=== PATIENT | female | born 1980 | race Hispanic/Latino ===

== ENCOUNTER 2021-10-21 23:03 | Inpatient (IN) | payer MEDICARE ==
[2021-10-21] MEDS ORDERED: SODIUM CHLORIDE 0.9% 1000 ML 1,000 ML IV ONE (23:28)
[2021-10-21] MEDS ORDERED: MINERAL OIL/PETROLATUM, WHITE OPHTH OINT 3.5 GM OU PRN (23:28)
[2021-10-21] MEDS ORDERED: LIP THERAPY VASELINE TP PRN (23:28)
[2021-10-21] MEDS ORDERED: ETOMIDATE 20 MG/10 ML INJ IV ONE (23:31)
[2021-10-21] MEDS ORDERED: ROCURONIUM 50 MG/5 ML INJ IV ONE (23:31)
--- NOTE | 2021-10-21 23:44 | Emergency Department Report ---
ED General Adult HPI - General Chief complaint: Altered Mental Status Stated complaint: OVERDOSE Time Seen by Provider: 10/21/21 23:28 Source: EMS (Verbal report received from emergency medical services. EMS documentation not available at time of chart dictation ), RN notes reviewed Mode of arrival: Stretcher Limitations: Altered Mental Status, Physical Limitation - History of Present Illness Initial comments: The patient is a 41-year-old female who was brought to the hospital by emergency medical services who is currently receiving trv-gxfky-ydsz ventilation. History is entirely obtained from EMS. EMS reports that they were called to the scene of a 41-year-old female with a complaint of altered mental status as per family/bystanders. EMS reports that it is suspected that this patient may have recreationally overdose on GHB and/or other recreational drugs. EMS reports patient minimally responsive in the field, they attempted intubation, but were unsuccessful. EMS also reports normal blood pressure and heart rate, and normal Accu-Chek. EMS reports giving 4 mg of Narcan in the field with minimal improvement in symptoms. They did report that the patient slightly aroused after receiving Narcan, and moves 4 extremities. Patient is currently obtunded with a GCS of 3 receiving fnt-thbse-gpht ventilation. She has copious secretions in her oropharynx. The patient is acutely altered, and not able to describe the qualitative nature of her symptoms, exacerbating factors relieving factors or aggravating factors. She is not accompanied by friends or family at this moment for additional information/collateral history. No additional history is available at this time -: unknown - Related Data Allergies Allergy/AdvReac Type Severity Reaction Status Date / Time Unable to Assess Allergy Verified 10/21/21 23:52 ED Review of Systems ROS: Stated complaint: OVERDOSE Other details as noted in HPI Comment: Unobtainable due to pts medical conditions ED Physical Exam - General Limitations: Altered Mental Status, Physical Limitation General appearance: obtunded - Head Head exam: Present: atraumatic, normocephalic - Eye Eye exam: Present: other (Pupils are dilated and react to light) - ENT ENT exam: Present: normal exam, normal orophraynx, mucous membranes moist, normal external ear exam, other (Copious secretions noted in the oropharynx) - Neck Neck exam: Present: normal inspection. Absent: tenderness, meningismus - Respiratory Respiratory exam: Present: respiratory distress, rhonchi - Cardiovascular Cardiovascular Exam: Present: regular rate, normal rhythm, normal heart sounds. Absent: bradycardia, tachycardia, irregular rhythm, systolic murmur, diastolic murmur, rubs, gallop - GI/Abdominal GI/Abdominal exam: Present: soft. Absent: distended, tenderness, guarding, rebound, rigid, pulsatile mass - Rectal Rectal exam: Present: normal inspection - External exam: Present: normal external exam - Extremities Exam Extremities exam: Present: normal inspection, other (2+ pulses noted in the bilateral upper and lower extremities. There is no palpable cord. negative Homans sign. Muscular compartments are soft. The pelvis is stable.). Absent: pedal edema, calf tenderness - Back Exam Back exam: Present: normal inspection. Absent: tenderness, CVA tenderness (L), paraspinal tenderness, vertebral tenderness - Neurological Exam Neurological exam: Present: altered (GCS of 3) - Psychiatric Psychiatric exam: Present: other (The patient is nonverbal) - Skin Skin exam: Present: warm, dry, intact, normal color. Absent: rash ED Course Vital Signs 10/21/21 10/22/21 10/22/21 23:40 00:00 00:45 Temperature 96.7 F L Pulse Rate 87 86 99 H Respiratory 0 L 18 18 Rate Blood Pressure 127/79 Blood Pressure 127/79 103/72 [Left] O2 Sat by Pulse 97 96 94 Oximetry 10/22/21 10/22/21 01:00 01:32 Temperature Pulse Rate 110 H 119 H Respiratory 18 22 Rate Blood Pressure Blood Pressure 109/80 [Left] O2 Sat by Pulse 95 Oximetry - Reevaluation(s) Reevaluation #1: 10/21/21 23:44 Differential diagnosis, including but not limited to: Toxic encephalopathy, metabolic encephalopathy, fall, closed head injury, overdose of uncertain intensity Assessment and plan: 41-year-old female with acute presumed toxic metabolic encephalopathy requiring intubation. 1013 ordered given report of overdose of uncertain intent. Obtain CT scan of the brain and cervical spine. Obtain appropriate laboratory studies, urinalysis and EKG. Maintain ventilatory support, and start propofol for postintubation sedation. Placed a page to critical care physician, awaiting callback from critical care. Admit to the ICU once initial diagnostic studies have resulted. 10/22/21 01:20 Case presented to ICU physician, Dr. Bloom. He is in agreement with placement into the intensive care unit. CT scan of the brain and cervical spine negative for acute findings. Laboratory studies unremarkable with exception of leukocytosis which is likely a stress reaction. Patient more awake and moving 4 extremities. Nursing team to start propofol. Urinalysis pending. Hospital physician, Dr. Oneal to admit to [facility] 10/22/21 02:10 Patient maxed out on propofol. On high-dose fentanyl. Very agitated, moving 4 extremities. I personally administered 200 mg of IV ketamine, to de-escalate this patient. Suspect that toxic metabolic encephalopathy improving, consistent with reported history of GHB ingestion - Intubation Time Out Performed: No (Emergency situation) Sedative: Etomidate (20) Mg Given: 20 Paralytic: Rocuronium (100) Laryngoscope: fiberoptic video scope Size: 4 Assist Device Used: other ET Tube Size: 7 Tube Secured Depth (cm): 26 Tube Secured Location: teeth Tube Placement Confirmation: visualized tube passing t, equal breath sounds bilat, no breath sounds over epi, confirmation by capnometr Intubation Complications: difficult intubation Additional Comments: Patient placed on nasal cannula at 15 L/min. Receives [id number]-eloiv-liwx ventilation, O2 sat achieved of 99%. Video laryngoscopy performed with a curved S4 blade, and a 7.5 endotracheal tube is inserted into the oropharynx. The trachea and vocal cords are easily visualized, and the endotracheal tube is passed on the proximal end of the trachea, but is not able to pass through the vocal cords. Repositioning is attempted. Patient does not desaturate. Attempted cannulation with bougie catheter, under curved S4 video laryngoscope blade. Gum elastic bougie is easily inserted into the proximal trachea, but is not able to be passed through the vocal cords. Patient continues to receive juo-lumdp-xvda ventilation, in addition to simultaneous nasal cannula oxygenation. Direct laryngoscopy is performed by respiratory therapist Barbara Moreno, under my direct supervision, with a Chandler 4 blade. A 7.0 endotracheal tube is inserted by the aforementioned respiratory therapist, with appropriate post capnography color change, and appropriate breath sounds bilaterally. Tube placement was subsequently confirmed by x-ray, and video laryngoscopy. Patient had transient episode of desaturation, which corrected with pti-oirro-ezbz ventilation and Peep valve set to 5 cm. Desaturation to 83%, for approximately 30 seconds ED Medical Decision Making - Lab Data Result diagrams: 10/21/21 23:51 10/21/21 23:51 Vital Signs 10/21/21 23:40 Pulse Rate 87 Respiratory 0 L Rate Blood Pressure 127/79 O2 Sat by Pulse 97 Oximetry Lab Results 10/21/21 10/21/21 10/21/21 Range/Units 00:45 23:51 23:51 WBC 19.8 H (4.5-11.0) K/mm3 RBC 4.78 (3.65-5.03) M/mm3 Hgb 13.6 (10.1-14.3) gm/dl Hct 42.5 (30.3-42.9) % MCV 89 (79-97) fl MCH 28 (28-32) pg MCHC 32 (30-34) % RDW 16.9 H (13.2-15.2) % Plt Count 324 (140-440) K/mm3 Lymph # (Auto) Technical Rep PT 12.7 (12.2-14.9) Sec. INR 0.87 (0.87-1.13) APTT 27.8 (24.2-36.6) Sec. ABG pH 7.218 L (7.350-7.450) pH Units ABG pCO2 81.9 mm Hg ABG pO2 85.4 (80.0-90.0) mm Hg ABG HCO3 32.6 H (20.0-26.0) mmol/L ABG O2 Saturation 95.3 (95.0-99.0) % ABG O2 Content 16.9 (0.0-44) ABG Base Excess 2.4 (-2.0-3.0) mmol/L ABG Hemoglobin 13.5 (12.0-16.0) gm/dl ABG Carboxyhemoglobin 6.7 H (0.0-5.0) % ABG Methemoglobin 0.5 (0.0-1.5) % Oxyhemoglobin 88.4 L (95.0-99.0) % FiO2 100 % Sodium (137-145) mmol/L Potassium (3.6-5.0) mmol/L Chloride (98-107) mmol/L Carbon Dioxide (22-30) mmol/L Anion Gap mmol/L BUN (7-17) mg/dL Creatinine (0.6-1.2) mg/dL Estimated GFR ml/min BUN/Creatinine Ratio % Glucose (65-100) mg/dL Calcium (8.4-10.2) mg/dL Total Bilirubin (0.1-1.2) mg/dL AST (5-40) units/L ALT (7-56) units/L Alkaline Phosphatase (35-129) units/L Ammonia (25-60) umol/L Troponin T (0.00-0.029) ng/mL Total Protein (6.3-8.2) g/dL Albumin (3.9-5) g/dL Albumin/Globulin Ratio % HCG, Quant (0-4) mIU/mL Salicylates (2.8-20.0) mg/dL Acetaminophen (10.0-30.0) ug/mL Plasma/Serum Alcohol (0-0.07) % 10/21/21 10/21/21 10/21/21 Range/Units 23:51 23:51 23:51 WBC (4.5-11.0) K/mm3 RBC (3.65-5.03) M/mm3 Hgb (10.1-14.3) gm/dl Hct (30.3-42.9) % MCV (79-97) fl MCH (28-32) pg MCHC (30-34) % RDW (13.2-15.2) % Plt Count (140-440) K/mm3 Lymph # (Auto) PT (12.2-14.9) Sec. INR (0.87-1.13) APTT (24.2-36.6) Sec. ABG pH (7.350-7.450) pH Units ABG pCO2 mm Hg ABG pO2 (80.0-90.0) mm Hg ABG HCO3 (20.0-26.0) mmol/L ABG O2 Saturation (95.0-99.0) % ABG O2 Content (0.0-44) ABG Base Excess (-2.0-3.0) mmol/L ABG Hemoglobin (12.0-16.0) gm/dl ABG Carboxyhemoglobin (0.0-5.0) % ABG Methemoglobin (0.0-1.5) % Oxyhemoglobin (95.0-99.0) % FiO2 % Sodium 144 (137-145) mmol/L Potassium 4.0 (3.6-5.0) mmol/L Chloride 100.4 (98-107) mmol/L Carbon Dioxide 26 (22-30) mmol/L Anion Gap 22 mmol/L BUN 15 (7-17) mg/dL Creatinine 0.7 (0.6-1.2) mg/dL Estimated GFR > 60 ml/min BUN/Creatinine Ratio 21 % Glucose 132 H (65-100) mg/dL Calcium 9.2 (8.4-10.2) mg/dL Total Bilirubin 0.20 (0.1-1.2) mg/dL AST 20 (5-40) units/L ALT 12 (7-56) units/L Alkaline Phosphatase 77 (35-129) units/L Ammonia 30.0 (25-60) umol/L Troponin T < 0.010 (0.00-0.029) ng/mL Total Protein 7.8 (6.3-8.2) g/dL Albumin 4.2 (3.9-5) g/dL Albumin/Globulin Ratio 1.2 % HCG, Quant (0-4) mIU/mL Salicylates < 0.3 L (2.8-20.0) mg/dL Acetaminophen (10.0-30.0) ug/mL Plasma/Serum Alcohol (0-0.07) % 10/21/21 10/21/21 10/21/21 Range/Units 23:51 23:51 23:51 WBC (4.5-11.0) K/mm3 RBC (3.65-5.03) M/mm3 Hgb (10.1-14.3) gm/dl Hct (30.3-42.9) % MCV (79-97) fl MCH (28-32) pg MCHC (30-34) % RDW (13.2-15.2) % Plt Count (140-440) K/mm3 Lymph # (Auto) PT (12.2-14.9) Sec. INR (0.87-1.13) APTT (24.2-36.6) Sec. ABG pH (7.350-7.450) pH Units ABG pCO2 mm Hg ABG pO2 (80.0-90.0) mm Hg ABG HCO3 (20.0-26.0) mmol/L ABG O2 Saturation (95.0-99.0) % ABG O2 Content (0.0-44) ABG Base Excess (-2.0-3.0) mmol/L ABG Hemoglobin (12.0-16.0) gm/dl ABG Carboxyhemoglobin (0.0-5.0) % ABG Methemoglobin (0.0-1.5) % Oxyhemoglobin (95.0-99.0) % FiO2 % Sodium (137-145) mmol/L Potassium (3.6-5.0) mmol/L Chloride (98-107) mmol/L Carbon Dioxide (22-30) mmol/L Anion Gap mmol/L BUN (7-17) mg/dL Creatinine (0.6-1.2) mg/dL Estimated GFR ml/min BUN/Creatinine Ratio % Glucose (65-100) mg/dL Calcium (8.4-10.2) mg/dL Total Bilirubin (0.1-1.2) mg/dL AST (5-40) units/L ALT (7-56) units/L Alkaline Phosphatase (35-129) units/L Ammonia (25-60) umol/L Troponin T (0.00-0.029) ng/mL Total Protein (6.3-8.2) g/dL Albumin (3.9-5) g/dL Albumin/Globulin Ratio % HCG, Quant < 2 (0-4) mIU/mL Salicylates (2.8-20.0) mg/dL Acetaminophen 5.0 L (10.0-30.0) ug/mL Plasma/Serum Alcohol < 0.01 (0-0.07) % - EKG Data -: EKG Interpreted by Ut EKG shows normal: sinus rhythm Rate: normal - EKG Data 10/22/21 00:12 The EKG is interpreted at 23: 57 Sinus rhythm, 97 bpm. Normal axis, normal P wave axis, QTC 4 9 3 ms, poor R wave progression. Abnormal EKG. Not a STEMI 10/22/21 00:17 - Radiology Data Radiology results: pending, report reviewed, image reviewed CHEST 1 VIEW INDICATION / CLINICAL INFORMATION: ETT placement. COMPARISON: Chest x-ray 12/05/2009 FINDINGS: SUPPORT DEVICES: Left subclavian stent present. Endotracheal tube terminates 4 cm above joelle. HEART / MEDIASTINUM: No significant abnormality. LUNGS / PLEURA: Coarsened interstitial markings suggesting chronic disease. Subsegmental atelectasis left lower lobe. Emphysematous changes are suggested. No pneumothorax. ADDITIONAL FINDINGS: No significant additional findings. IMPRESSION: 1. Satisfactory position of endotracheal tube. 2. Stable appearance of left subclavian artery stent. 3. Emphysematous appearance of the chest is suggested with subsegmental atelectasis left lower lobe. Otherwise no active cardiopulmonary disease. Signer Name: Homero Tim II, MD Signed: 10/21/2021 10:53 PM Workstation Name: [employer] CT HEAD WITHOUT CONTRAST INDICATION / CLINICAL INFORMATION: Altered Mental Status. TECHNIQUE: CT of the head was performed without administration of intravenous contrast. All CT scans at this location are performed using CT dose reduction for [employer] by means of automated exposure control. COMPARISON: CT cervical spine same date. CT head 12/05/2009 FINDINGS: CEREBRAL PARENCHYMA: No significant abnormality. No acute territorial infarct. HEMORRHAGE: None. EXTRA- AXIAL SPACES: Normal in size and morphology for the patient's age. VENTRICULAR SYSTEM: Normal in size and morphology for the patient's age. MIDLINE SHIFT / HERNIATION: None. CEREBELLUM / BRAINSTEM: No significant abnormality. ORBITS: Normal as visualized. SOFT TISSUES: No significant abnormality. SKULL: No significant abnormality. PARANASAL SINUSES / MASTOID AIR CELLS: Normal as visualized. ADDITIONAL FINDINGS: None. IMPRESSION: 1. No acute intracranial abnormality. Signer Name: Homero Tim II, MD Signed: 10/21/2021 11:53 PM Workstation Name: [email or web address] CT CERVICAL SPINE WITHOUT CONTRAST INDICATION / CLINICAL INFORMATION: Altered Mental Status. TECHNIQUE: Axial CT images were obtained through the cervical spine. Sagittal and coronal reformatted images were produced. All CT scans at this location are performed using CT dose reduction for [employer] by means of automated exposure control. COMPARISON: None available. FINDINGS: SKULL BASE: No significant abnormality of the skull base. CRANIOCERVICAL JUNCTION: No significant abnormality of the craniocervical junction. ALIGNMENT: No significant abnormality of alignment. VERTEBRAL BODIES: Vertebral body heights fairly uniform throughout. DISK SPACES: Disk spaces are fairly uniform throughout. FACET JOINTS: No significant abnormality of facet articulations. STENOSIS BY LEVEL: None. CENTRAL CANAL: No significant central stenosis. SOFT TISSUES: No significant abnormality of soft tissues or musculature. THYROID: No significant abnormality. UPPER CHEST: No significant abnormality of the visualized chest. ADDITIONAL FINDINGS: Endotracheal tube present tip not included on the image acquisition. Esophagogastric tube additionally present. Left subclavian artery stent. IMPRESSION: 1. No acute cervical spine injury. No significant degenerative changes. Signer Name: Homero Tim II, MD Signed: 10/21/2021 11:56 PM Workstation Name: [id number] Critical Care Time: Yes Critical care time in (mins) excluding proc time.: 35 Critical care attestation.: If time is entered above; I have spent that time in minutes in the direct care of this critically ill patient, excluding procedure time. ED Disposition Clinical Impression: Acute respiratory failure, Acute encephalopathy, Overdose Disposition: ADMITTED INPATIENT Is pt being admited?: Yes Does the pt Need Aspirin: No Condition: Critical Referrals: PRIMARY CARE, [Primary Care Provider] - 3-5 Days
--- NOTE | 2021-10-21 23:57 | XRay Report ---
CHEST 1 VIEW INDICATION / CLINICAL INFORMATION: ETT placement. COMPARISON: Chest x-ray 12/05/2009 FINDINGS: SUPPORT DEVICES: Left subclavian stent present. Endotracheal tube terminates 4 cm above joelle. HEART / MEDIASTINUM: No significant abnormality. LUNGS / PLEURA: Coarsened interstitial markings suggesting chronic disease. Subsegmental atelectasis left lower lobe. Emphysematous changes are suggested. No pneumothorax. ADDITIONAL FINDINGS: No significant additional findings. IMPRESSION: 1. Satisfactory position of endotracheal tube. 2. Stable appearance of left subclavian artery stent. 3. Emphysematous appearance of the chest is suggested with subsegmental atelectasis left lower lobe. Otherwise no active cardiopulmonary disease. Signer Name: Homero Tim II, MD Signed: 10/21/2021 11:53 PM Workstation Name: [id number]
[2021-10-22 00:19] LABS: Hematocrit 42.5 % (30.3-42.9); Hemoglobin 13.6 gm/dl (10.1-14.3); Mean Corpuscular HGB Conc 32 % (30-34); Mean Corpuscular Volume 89 fl (79-97); Platelet Count 324 K/mm3 (140-440); Red Blood Count 4.78 M/mm3 (3.65-5.03); Red Cell Distribution Width 16.9 % (13.2-15.2)
[2021-10-22 00:29] LABS: INR 0.87 (0.87-1.13)
[2021-10-22 00:30] LABS: Partial Thromboplastin Time 27.8 Sec. (24.2-36.6)
--- NOTE | 2021-10-22 00:57 | Cat Scan Report ---
CT HEAD WITHOUT CONTRAST INDICATION / CLINICAL INFORMATION: Altered Mental Status. TECHNIQUE: CT of the head was performed without administration of intravenous contrast. All CT scans at this location are performed using CT dose reduction for [employer] by means of automated exposure contr ol. COMPARISON: CT cervical spine same date. CT head 12/05/2009 FINDINGS: CEREBRAL PARENCHYMA: No significant abnormality. No acute territorial infarct. HEMORRHAGE: None. EXTRA-AXIAL SPACES: Normal in size and morphology for the patient's age. VENTRICULAR SYSTEM: Normal in size and morphology for the patient's age. MIDLINE SHIFT / HERNIATION: None. CEREBELLUM / BRAINSTEM: No significant abnormality. ORBITS: Normal as visualized. SOFT TISSUES: No significant abnormality. SKULL: No significant abnormality. PARANASAL SINUSES / MASTOID AIR CELLS: Normal as visualized. ADDITIONAL FINDINGS: None. IMPRESSION: 1. No acute intracranial abnormality. Signer Name: Homero Tim II, MD Signed: 10/22/2021 12:53 AM Workstation Name: [id number]
--- NOTE | 2021-10-22 01:00 | Cat Scan Report ---
CT CERVICAL SPINE WITHOUT CONTRAST INDICATION / CLINICAL INFORMATION: Altered Mental Status. TECHNIQUE: Axial CT images were obtained through the cervical spine. Sagittal and coronal reformatted images were produced. All CT scans at this location are performed using CT dose reduction for [employer] by means of automated exposure control. COMPARISON: None available. FINDINGS: SKULL BASE: No significant abnormality of the skull base. CRANIOCERVICAL JUNCTION: No significant abnormality of the craniocervical junction. ALIGNMENT: No significant abnormality of alignment. VERTEBRAL BODIES: Vertebral body heights fairly uniform throughout. DISK SPACES: Disk spaces are fairly uniform throughout. FACET JOINTS: No significant abnormality of facet articulations. STENOSIS BY LEVEL: None. CENTRAL CANAL: No significant central stenosis. SOFT TISSUES: No significant abnormality of soft tissues or musculature. THYROID: No significant abnormality. UPPER CHEST: No significant abnormality of the visualized chest. ADDITIONAL FINDINGS: Endotracheal tube present tip not included on the image acquisition. Esophagogas tric tube additionally present. Left subclavian artery stent. IMPRESSION: 1. No acute cervical spine injury. No significant degenerative changes. Signer Name: Homero Tim II, MD Signed: 10/22/2021 12:56 AM Workstation Name: [id number]
[2021-10-22 01:05] LABS: ABG Base Excess 2.4 mmol/L (-2.0-3.0); ABG HCO3 32.6 mmol/L (20.0-26.0); ABG Methemoglobin 0.5 % (0.0-1.5); ABG Oxygen Saturation 95.3 % (95.0-99.0); ABG PCO2 81.9 mm Hg; ABG PH 7.218 pH Units (7.350-7.450); ABG PO2 85.4 mm Hg (80.0-90.0)
[2021-10-22 01:09] LABS: Alanine Aminotransferase 12 units/L (7-56); Albumin 4.2 g/dL (3.9-5); Blood Urea Nitrogen 15 mg/dL (7-17); Calcium 9.2 mg/dL (8.4-10.2); Hemolysis Index 12
[2021-10-22 01:11] LABS: BUN/Creatinine Ratio 21
[2021-10-22] MEDS ORDERED: fentaNYL DRIP Premix 2,000 MCG/100 ML BAG IV ONE (01:55)
[2021-10-22] MEDS: fentaNYL DRIP Premix 2,000 MCG/100 ML BAG IV SCH ×4 (02:00→20:54)
[2021-10-22] MEDS ORDERED: KETAMINE 500 MG/5 ML VIAL MDV ONE (02:06)
[2021-10-22] MEDS ORDERED: KETAMINE 500 MG/5 ML VIAL MDV IV ONE ×2 (02:06→03:05)
[2021-10-22] MEDS ORDERED: IPRATROPIUM/ALBUTEROL SULFATE 3 ML AMPUL.NEB IH ONE (02:13)
[2021-10-22] MEDS: KETAMINE 200 MG/20 ML INJ MDV IV ONE ×2 (02:26→03:11)
[2021-10-22] MEDS ORDERED: HYDROmorphone 1 MG/1 ML INJ IV PRN (02:33)
[2021-10-22] MEDS ORDERED: ALBUTEROL 2.5 MG/3 ML NEBU IH PRN (02:33)
[2021-10-22] MEDS ORDERED: MORPHINE 2 MG/1 ML INJ IV PRN (02:33)
[2021-10-22] MEDS ORDERED: ONDANSETRON 4 MG/2 ML INJ IV PRN (02:33)
--- NOTE | 2021-10-22 02:43 | History and Physical Report ---
History of Present Illness Date of examination: 10/22/21 Date of admission: 10/22/21 Chief complaint: Altered mental status Drug overdose History of present illness: 41-year-old female who was brought to the hospital by emergency medical services who is currently receiving [id number]-[id number] ventilation. History is entirely obtained from EMS. EMS reports that they were called to the scene of a 41-year-old female with a complaint of altered mental status as per fami ly/bystanders. EMS reports that it is suspected that this patient may have recreationally overdose on GHB and/or other recreational drugs. EMS reports patient minimally responsive in the field, they attempted intubation, but were unsuccessful. EMS also reports normal blood pressure and heart rate, and normal Accu-Chek. EMS reports giving 4 mg of Narcan in the field with minimal improvement in symptoms. They did report that the patient slightly aroused after receiving Narcan, and moves 4 extremities. Patient is currently obtunded with a GCS of 3 receiving [id number]-gwlbg-[id number] ventilation. She has copious secretions in her oropharynx. Subsequently patient was intubated in the ER. In the emergency room patient is found to have WBC of 19.8. initial CT scan shows no acute intracranial abnormality. Chest x-ray shows satisfactory position of the endochondral tube. Stable appearance of the left subclavian artery stent. Emphysematous appearance of the chest is suggested with subsegmental atelectasis left lower lobe. Otherwise no active cardiopulmonary disease So going to admit the patient to the ICU. Will consult critical care for evaluation Past History Past Medical History: other (Drug abuse) Medications and Allergies Allergies Allergy/AdvReac Type Severity Reaction Status Date / Time No Known Allergies Allergy Unverified 10/22/21 05:16 Home Medications Medication Instructions Recorded Confirmed Last Taken Type No Known Home Medications [No 10/22/21 10/22/21 Unknown History Reported Home Medications] Active Meds: Active Medications Acetaminophen (Acetaminophen 325 Mg Tab) 650 mg PO Q4H PRN PRN Reason: Pain MILD(1-3)/Fever >100.5/BROOKS Albuterol (Albuterol 2.5 Mg/3 Ml Nebu) 2.5 mg IH Q3HRT PRN PRN Reason: Shortness Of Breath Albuterol/Ipratropium (Ipratropium/Albuterol Sulfate 3 Ml Ampul.Neb) 1 ampul IH Q6HRT [facility] Famotidine (Famotidine 20 Mg/2 Ml Inj) 20 mg IV BID [facility] Fentanyl (Fentanyl 100 Mcg/2 Ml Inj) 50 mcg IV Q10MIN PRN PRN Reason: ANALGESIA Heparin Sodium (Porcine) (Heparin 5,000 Unit/1 Ml Vial) 5,000 unit SUB-Q Q12HR [facility] Hydromorphone HCl (Hydromorphone 1 Mg/1 Ml Inj) 0.5 mg IV Q3H PRN PRN Reason: Pain , Severe (7-10) Hydrophilic Ointment (Lip Therapy Vaseline) 1 applic TP Q2HR PRN PRN Reason: Dry Lips Propofol (Diprivan 10 Mg/Ml) 1,000 mg in 100 mls @ 2.247 mls/hr IV TITR [facility]; Protocol Last Titration: 10/22/21 01:50 Dose: 30 mcg/kg/min, 13.482 mls/hr Fentanyl Citrate (Fentanyl Drip Premix) 2,000 mcg in 100 mls @ 3.745 mls/hr IV TITR [facility]; Protocol Last Admin: 10/22/21 02:00 Dose: 1 mcg/kg/hr, 3.745 mls/hr Dextrose/Sodium Chloride (D5/0.45ns) 1,000 mls @ 100 mls/hr IV DIRECT HELDER Ketamine HCl (Ketamine 200 Mg/20 Ml Inj Mdv) 300 mg IV ONCE ONE Stop: 10/22/21 02:27 Morphine Sulfate (Morphine 2 Mg/1 Ml Inj) 2 mg IV Q4H PRN PRN Reason: Pain, Moderate (4-6) Multi-Ingred Cream/Lotion/Oil/Oint (Mineral Oil/Petrolatum, White Ophth Oint 3.5 Gm) 1 applic OU Q4HR PRN PRN Reason: Dry Eye(s) Ondansetron HCl (Ondansetron 4 Mg/2 Ml Inj) 4 mg IV Q8H PRN PRN Reason: Nausea And Vomiting Senna/Docusate Sodium (Sennosides/Docusate Sodium 8.6/50 Mg Tab) 1 tab FEEDTUBE BID [facility] Sodium Chloride (Sodium Chloride 0.9% 10 Ml Flush Syringe) 10 ml IV BID [facility] Sodium Chloride (Sodium Chloride 0.9% 10 Ml Flush Syringe) 10 ml IV PRN PRN PRN Reason: LINE FLUSH Review of Systems Constitutional: malaise, lethargy Neurological: change in mentation Exam - Constitutional Vitals: Temp Pulse Resp BP Pulse Ox 96.7 F L 106 H 24 109/80 87 10/21/21 23:40 10/22/21 02:31 10/22/21 02:31 10/22/21 01:00 10/22/21 01:30 General appearance: Present: severe distress - EENT Eyes: Present: PERRL ENT: hearing intact, clear oral mucosa - Neck Neck: Present: supple, normal ROM - Respiratory Respiratory effort: normal Respiratory: bilateral: diminished - Cardiovascular Heart Sounds: Present: S1 & S2. Absent: rub, click - Extremities Extremities: pulses symmetrical, No edema Peripheral Pulses: within normal limits - Abdominal General gastrointestinal: Present: soft, non-tender, non-distended, normal bowel sounds Female genitourinary: Present: normal - Integumentary Integumentary: Present: clear, warm, dry - Musculoskeletal Musculoskeletal: gait normal, strength equal bilaterally - Psychiatric Psychiatric: other (Patient is on vent) - Neurologic Neurologic: CNII-XII intact, moves all extremities, other (Patient is on vent) HEART Score - HEART Score Troponin: Troponin T < 0.010 ng/mL (0.00-0.029) 10/21/21 23:51 Results - Labs CBC & Chem 7: 10/21/21 23:51 10/21/21 23:51 Labs: Laboratory Last Values WBC 19.8 K/mm3 (4.5-11.0) H 10/21/21 23:51 RBC 4.78 M/mm3 (3.65-5.03) 10/21/21 23:51 Hgb 13.6 gm/dl (10.1-14.3) 10/21/21 23:51 Hct 42.5 % (30.3-42.9) 10/21/21 23:51 MCV 89 fl (79-97) 10/21/21 23:51 MCH 28 pg (28-32) 10/21/21 23:51 MCHC 32 % (30-34) 10/21/21 23:51 RDW 16.9 % (13.2-15.2) H 10/21/21 23:51 Plt Count 324 K/mm3 (140-440) 10/21/21 23:51 Lymph # (Auto) [employer] 10/21/21 23:51 PT 12.7 Sec. (12.2-14.9) 10/21/21 23:51 INR 0.87 (0.87-1.13) 10/21/21 23:51 APTT 27.8 Sec. (24.2-36.6) 10/21/21 23:51 ABG pH 7.218 pH Units (7.350-7.450) L 10/21/21 00:45 ABG pCO2 81.9 mm Hg 10/21/21 00:45 ABG pO2 85.4 mm Hg (80.0-90.0) 10/21/21 00:45 ABG HCO3 32.6 mmol/L (20.0-26.0) H 10/21/21 00:45 ABG O2 Saturation 95.3 % (95.0-99.0) 10/21/21 00:45 ABG O2 Content 16.9 (0.0-44) 10/21/21 00:45 ABG Base Excess 2.4 mmol/L (-2.0-3.0) 10/21/21 00:45 ABG Hemoglobin 13.5 gm/dl (12.0-16.0) 10/21/21 00:45 ABG Carboxyhemoglobin 6.7 % (0.0-5.0) H 10/21/21 00:45 ABG Methemoglobin 0.5 % (0.0-1.5) 10/21/21 00:45 Oxyhemoglobin 88.4 % (95.0-99.0) L 10/21/21 00:45 FiO2 100 % 10/21/21 00:45 Sodium 144 mmol/L (137-145) 10/21/21 23:51 Potassium 4.0 mmol/L (3.6-5.0) 10/21/21 23:51 Chloride 100.4 mmol/L (98-107) 10/21/21 23:51 Carbon Dioxide 26 mmol/L (22-30) 10/21/21 23:51 Anion Gap 22 mmol/L 10/21/21 23:51 BUN 15 mg/dL (7-17) 10/21/21 23:51 Creatinine 0.7 mg/dL (0.6-1.2) 10/21/21 23:51 Estimated GFR > 60 ml/min 10/21/21 23:51 BUN/Creatinine Ratio 21 % 10/21/21 23:51 Glucose 132 mg/dL (65-100) H 10/21/21 23:51 Calcium 9.2 mg/dL (8.4-10.2) 10/21/21 23:51 Total Bilirubin 0.20 mg/dL (0.1-1.2) 10/21/21 23:51 AST 20 units/L (5-40) 10/21/21 23:51 ALT 12 units/L (7-56) 10/21/21 23:51 Alkaline Phosphatase 77 units/L (35-129) 10/21/21 23:51 Ammonia 30.0 umol/L (25-60) 10/21/21 23:51 Troponin T < 0.010 ng/mL (0.00-0.029) 10/21/21 23:51 Total Protein 7.8 g/dL (6.3-8.2) 10/21/21 23:51 Albumin 4.2 g/dL (3.9-5) 10/21/21 23:51 Albumin/Globulin Ratio 1.2 % 10/21/21 23:51 TSH 2.700 mlU/mL (0.270-4.200) 10/21/21 23:51 HCG, Quant < 2 mIU/mL (0-4) 10/21/21 23:51 Salicylates < 0.3 mg/dL (2.8-20.0) L 10/21/21 23:51 Acetaminophen 5.0 ug/mL (10.0-30.0) L 10/21/21 23:51 Plasma/Serum Alcohol < 0.01 % (0-0.07) 10/21/21 23:51 Blood Type A NEGATIVE 10/21/21 23:49 Antibody Screen Negative 10/21/21 23:49 - Imaging and Cardiology Chest x-ray: report reviewed CT Scan - head: report reviewed Assessment and Plan VTE prophylaxis?: Chemical Plan of care discussed with patient/family: Yes - Patient Problems (1) Overdose Current Visit: Yes Status: Acute Plan to address problem: Admit the patient to the ICU. Patient is on vent. DuoNeb by nebulizer every 4 hours. D5 half-normal saline at the rate of 100 cc/h. Pepcid 20 mg IV every 12 hours. We will monitor the patient closely. Will consult critical care evaluation. Recheck CBC BMP in the morning (2) Acute encephalopathy Current Visit: Yes Status: Acute Plan to address problem: Metabolic encephalopathy secondary to drug overdose. D5 half-normal saline at the rate of 100 cc/h. Pepcid 20 mg IV every 12 hours. We will monitor the patient closely. Will consult critical care evaluation. Recheck CBC BMP in the morning (3) Acute respiratory failure Current Visit: Yes Status: Acute Plan to address problem: Patient is on vent. DuoNeb by nebulizer every 4 hours. Albuterol via nebulizer every 4 hours as needed. We consult pulmonary and critical care evaluation. Recheck ABG in the morning (4) Leukocytosis Current Visit: Yes Status: Acute Plan to address problem: Zosyn 4.5 g IV every 8 hours. We do the blood cultures sputum culture. Recheck CBC in the morning (5) Aspiration pneumonia Current Visit: Yes Status: Acute Plan to address problem: DuoNeb by nebulizer every 4 hours. Patient is a status post intubation. Zosyn 4.5 g IV every 8 hours. Vancomycin 1 g IV every 12 hours. Blood cultures sputum culture. Pulmonary evaluation (6) DVT prophylaxis Current Visit: Yes Status: Acute Plan to address problem: Heparin 5000 units subcu every 12 hours for DVT prophylaxis. Pepcid 20 mg IV every 12 hours for GI prophylaxis. Patient is a full code
[2021-10-22] MEDS ORDERED: D5W/0.45% NACL 1,000 ML IV SCH (03:00)
[2021-10-22 03:08] LABS: Bilirubin,Urine NEG (Negative); Blood,Urine NEG (Negative); Color,Urine Yellow (Yellow); Urobilinogen,Urine < 2.0 mg/dL (<2.0)
--- NOTE | 2021-10-22 03:13 | XRay Report ---
CHEST 1 VIEW INDICATION / CLINICAL INFORMATION: hypoxia. COMPARISON: Chest x-ray 10/21/2021 FINDINGS: SUPPORT DEVICES: Interval placement of endotracheal tube tip approximately 5 cm above the joelle. Eso phagogastric tube below the inferior margin of the image likely within the stomach. Left subclavian a rtery stent. HEART / MEDIASTINUM: No significant interval change. LUNGS / PLEURA: Left lung remains clear. Right lung demonstrates probable atelectasis, moderate. No p neumothorax. ADDITIONAL FINDINGS: No significant additional findings. IMPRESSION: 1. Moderate atelectasis of the right lung is now demonstrated. Left lung remains clear. 2. Satisfactory position of tubes and lines. Signer Name: Homero Tim II, MD Signed: 10/22/2021 3:08 AM Workstation Name: [id number]
[2021-10-22 03:17] LABS: Amphetamine Screen,Urine PRESUMPTIVE POSITIVE; Benzodiazepines Screen,Urine PRESUMPTIVE NEGATIVE; Cannabinoid Screen,Urine PRESUMPTIVE NEGATIVE; Cocaine Screen,Urine PRESUMPTIVE NEGATIVE; Methadone Screen,Urine PRESUMPTIVE NEGATIVE; Opiate Screen,Urine PRESUMPTIVE NEGATIVE
[2021-10-22 03:20] LABS: Bacteria,Urine 1+ /HPF (Negative); Hyaline Casts,Urine 2 /LPF; Mucus,Urine FEW /HPF
[2021-10-22 03:28] LABS: Giant Platelets Rare; RBC Morphology Normal; Total Cells Counted 100
[2021-10-22] MEDS ORDERED: MIDAZOLAM/NS Drip 100mg/100ml 100 MG/100 ML BAG IV SCH (04:00)
[2021-10-22] MEDS ORDERED: PIPERACIL/TAZOBACTA 4.5/NS 100 4.5 GM/100 ML VIAL IV SCH (04:30)
[2021-10-22] MEDS ORDERED: VANCOMYCIN PHARMACY TO DOSE IV SCH (06:00)
[2021-10-22] MEDS ORDERED: VANCOMYCIN/NS 1 GM/250 ML 1 GM/250 ML BAG IV SCH (06:00)
[2021-10-22] MEDS ORDERED: VANCOMYCIN 1,500 MG in SODIUM CHLORIDE 0.9% 500 ML 500 ML IV ONE (08:00)
--- NOTE | 2021-10-22 08:25 | XRay Report ---
CHEST - 1 VIEW 0741 hours INDICATION: Follow up R lung COMPARISON: Earlier today at 0255 hours FINDINGS: Support devices: Stable support device positioning. Heart: Stable cardiomediastinal silhouette. Lungs/pleura: Large areas of atelectasis in the right lung have significantly improved since earlier today at 0255 hours. Mild residual atelectatic changes are noted in the right middle lobe. The left lung remains clear. No pneumothorax. Additional findings: None. IMPRESSION: Significantly better aeration of the right lung. Signer Name: Dominic Huggins Jr, MD Signed: 10/22/2021 8:21 AM Workstation Name: [id number]
[2021-10-22 08:29] LABS: ABG Base Excess 3.3 mmol/L (-2.0-3.0); ABG HCO3 30.3 mmol/L (20.0-26.0); ABG Methemoglobin 0.5 % (0.0-1.5); ABG Oxygen Saturation 98.9 % (95.0-99.0); ABG PCO2 57.7 mm Hg; ABG PH 7.338 pH Units (7.350-7.450); ABG PO2 167.4 mm Hg (80.0-90.0)
[2021-10-22] MEDS: IPRATROPIUM/ALBUTEROL SULFATE 3 ML AMPUL.NEB IH SCH ×3 (09:32→20:40)
[2021-10-22] MEDS: SENNOSIDES/DOCUSATE SODIUM 8.6/50 MG TAB FEEDTUBE SCH ×2 (09:51→21:01)
[2021-10-22] MEDS ORDERED: LORazepam 2 MG/ML VIAL IV PRN (09:53)
[2021-10-22] MEDS ORDERED: AZITHROMYCIN/NS 500 MG/250 ML 500 MG/250 ML BAG IV SCH (10:00)
[2021-10-22] MEDS ORDERED: ARFORMOTEROL 15 MCG/2 ML NEBU IH SCH (10:00)
[2021-10-22] MEDS: FAMOTIDINE 20 MG/2 ML INJ IV SCH ×2 (10:03→21:01)
[2021-10-22] MEDS: HEPARIN 5,000 UNIT/1 ML VIAL SUB-Q SCH ×2 (10:06→21:00)
[2021-10-22] MEDS: BUDESONIDE 0.25 MG/2 ML NEBU IH SCH ×2 (10:25→20:41)
[2021-10-22 10:33] LABS: Hemoglobin 11.8 gm/dl (10.1-14.3); Mean Corpuscular HGB Conc 32 % (30-34); Mean Corpuscular Volume 89 fl (79-97); Platelet Count 300 K/mm3 (140-440); Red Blood Count 4.15 M/mm3 (3.65-5.03); Red Cell Distribution Width 16.4 % (13.2-15.2)
[2021-10-22 10:44] LABS: Blood Urea Nitrogen 12 mg/dL (7-17); Calcium 8.4 mg/dL (8.4-10.2); Hemolysis Index 4
[2021-10-22 10:46] LABS: BUN/Creatinine Ratio 24
--- NOTE | 2021-10-22 11:32 | Consultation ---
History of Present Illness Consult date: 10/22/21 Requesting physician: REBECCA SYKES Reason for consult: other History of present illness: 41 y/o female presented to the Ed on last evening with altered mental state. REquired intubation and mechanical ventilation secondary to altered mental state. This am patient is awake on 20 of diprovan and 4 of Fentanyl. Following commands and writing notes. Repeat CXR this am improved, however ABG was not good. Attempted to wean patient down and she desatted to the 80's. Patient wants tube out and writes that she will be ok but I explained to her at the bedside that it was not safe now to do this. Remainder of the review is negative. Past History Past Medical History: COPD (with chronic respiratory failure on 3 liters. ), other (Drug abuse) Medications and Allergies Allergies Allergy/AdvReac Type Severity Reaction Status Date / Time No Known Allergies Allergy Unverified 10/22/21 05:16 Home Medications Medication Instructions Recorded Confirmed Last Taken Type No Known Home Medications [No 10/22/21 10/22/21 Unknown History Reported Home Medications] Active Meds: Active Medications Acetaminophen (Acetaminophen 325 Mg Tab) 650 mg PO Q4H PRN PRN Reason: Pain MILD(1-3)/Fever >100.5/BROOKS Albuterol (Albuterol 2.5 Mg/3 Ml Nebu) 2.5 mg IH Q3HRT PRN PRN Reason: Shortness Of Breath Albuterol/Ipratropium (Ipratropium/Albuterol Sulfate 3 Ml Ampul.Neb) 1 ampul IH Q6HRT [facility] Last Admin: 10/22/21 09:32 Dose: 1 ampul Budesonide (Budesonide 0.25 Mg/2 Ml Nebu) 0.25 mg IH Q12HRT [facility] Last Admin: 10/22/21 10:25 Dose: Not Given Famotidine (Famotidine 20 Mg/2 Ml Inj) 20 mg IV BID [facility] Last Admin: 10/22/21 10:03 Dose: 20 mg Fentanyl (Fentanyl 100 Mcg/2 Ml Inj) 50 mcg IV Q10MIN PRN PRN Reason: ANALGESIA Heparin Sodium (Porcine) (Heparin 5,000 Unit/1 Ml Vial) 5,000 unit SUB-Q Q12HR [facility] Last Admin: 10/22/21 10:06 Dose: 5,000 unit Hydromorphone HCl (Hydromorphone 1 Mg/1 Ml Inj) 0.5 mg IV Q3H PRN PRN Reason: Pain , Severe (7-10) Hydrophilic Ointment (Lip Therapy Vaseline) 1 applic TP Q2HR PRN PRN Reason: Dry Lips Propofol (Diprivan 10 Mg/Ml) 1,000 mg in 100 mls @ 2.247 mls/hr IV TITR [facility]; Protocol Last Titration: 10/22/21 10:53 Dose: 30 mcg/kg/min, 13.482 mls/hr Fentanyl Citrate (Fentanyl Drip Premix) 2,000 mcg in 100 mls @ 3.745 mls/hr IV TITR [facility]; Protocol Last Titration: 10/22/21 10:00 Dose: 4 mcg/kg/hr, 14.98 mls/hr MIDAZOLAM/NS Drip 100mg/100ml (Midazolam/Ns Drip 100mg/100ml) 100 mg in 100 mls @ 1 mls/hr IV TITR [facility]; Protocol Levofloxacin/Dextrose (Levaquin 500mg/100ml) 500 mg in 100 mls @ 100 mls/hr IV Q24H [facility]; Protocol Stop: 10/26/21 11:59 Lorazepam (Lorazepam 2 Mg/Ml Vial) 1 mg IV Q4H PRN PRN Reason: Agitation Methylprednisolone Sodium Succinate (Methylprednisolone Sod Succinate 125 Mg/2 Ml Inj) 60 mg IV Q8HR [facility] Morphine Sulfate (Morphine 2 Mg/1 Ml Inj) 2 mg IV Q4H PRN PRN Reason: Pain, Moderate (4-6) Multi-Ingred Cream/Lotion/Oil/Oint (Mineral Oil/Petrolatum, White Ophth Oint 3.5 Gm) 1 applic OU Q4HR PRN PRN Reason: Dry Eye(s) Ondansetron HCl (Ondansetron 4 Mg/2 Ml Inj) 4 mg IV Q8H PRN PRN Reason: Nausea And Vomiting Senna/Docusate Sodium (Sennosides/Docusate Sodium 8.6/50 Mg Tab) 1 tab FEEDTUBE BID [facility] Last Admin: 10/22/21 09:51 Dose: Not Given Sodium Chloride (Sodium Chloride 0.9% 10 Ml Flush Syringe) 10 ml IV BID [facility] Last Admin: 10/22/21 10:04 Dose: 10 ml Sodium Chloride (Sodium Chloride 0.9% 10 Ml Flush Syringe) 10 ml IV PRN PRN PRN Reason: LINE FLUSH Review of Systems All systems: negative Physical Examination Vital signs: Vital Signs Temp Pulse Resp BP Pulse Ox 96.7 F L 87 0 L 127/79 97 10/21/21 23:40 10/21/21 23:40 10/21/21 23:40 10/21/21 23:40 10/21/21 23:40 General appearance: no acute distress, alert, other (appears older than stated age) Eyes: non-icteric ENT: other (orally intubated and sedated) Neck: supple Effort: normal Ascultation: Bilateral: wheezes Percussion: Bilateral: not dull Cardiovascular: regular rate and rhythm Gastrointestinal: normoactive bowel sounds, soft, non-tender Extremities: no cyanosis, no edema, pink and warm, pulses normal Results - Laboratory Findings CBC and BMP: 10/22/21 10:06 10/22/21 10:06 ABG ABG pH 7.338 pH Units (7.350-7.450) L 10/22/21 08:20 POC ABG pCO2 64.5 mmHg (32.0-48.0) H 10/22/21 04:25 ABG pCO2 57.7 mm Hg 10/22/21 08:20 POC ABG pO2 66.0 mmHg (83-108) L 10/22/21 04:25 ABG pO2 167.4 mm Hg (80.0-90.0) H 10/22/21 08:20 POC ABG HCO3 31.7 10/22/21 04:25 ABG O2 Saturation 98.9 % (95.0-99.0) 10/22/21 08:20 PT/INR, D-dimer PT 12.7 Sec. (12.2-14.9) 10/21/21 23:51 INR 0.87 (0.87-1.13) 10/21/21 23:51 Abnormal lab findings: Abnormal Labs 10/21/21 10/21/21 10/21/21 00:45 23:51 23:51 WBC 19.8 H RDW 16.9 H Monocytes % (Manual) 11.0 H Seg Neutrophils # Man 12.1 H Monocytes # (Manual) 2.2 H Basophils # (Manual) 0.2 H ABG pH 7.218 L POC ABG pCO2 POC ABG pO2 ABG pO2 ABG HCO3 32.6 H ABG Base Excess ABG Oxyhemoglobin ABG Carboxyhemoglobin 6.7 H Oxyhemoglobin 88.4 L Carboxyhemoglobin Creatinine Glucose 132 H Salicylates Acetaminophen 10/21/21 10/21/21 10/22/21 23:51 23:51 04:25 WBC RDW Monocytes % (Manual) Seg Neutrophils # Man Monocytes # (Manual) Basophils # (Manual) ABG pH 7.310 L POC ABG pCO2 64.5 H POC ABG pO2 66.0 L ABG pO2 ABG HCO3 ABG Base Excess ABG Oxyhemoglobin 90.3 L ABG Carboxyhemoglobin Oxyhemoglobin Carboxyhemoglobin 2.8 H Creatinine Glucose Salicylates < 0.3 L Acetaminophen 5.0 L 10/22/21 10/22/21 10/22/21 08:20 10:06 10:06 WBC 22.4 H RDW 16.4 H Monocytes % (Manual) Seg Neutrophils # Man Monocytes # (Manual) Basophils # (Manual) ABG pH 7.338 L POC ABG pCO2 POC ABG pO2 ABG pO2 167.4 H ABG HCO3 30.3 H ABG Base Excess 3.3 H ABG Oxyhemoglobin ABG Carboxyhemoglobin Oxyhemoglobin Carboxyhemoglobin Creatinine 0.5 L Glucose Salicylates Acetaminophen - Diagnostic Findings Chest x-ray: image reviewed Assessment and Plan 41 y/o female with acute respiratory failure secondary to drug abuse and possible COPD exacerbation. 1. Continue vent today, resume sedation, 2. Added solumedrol 60q6 and will add BID pulmicort. Already on scheduled duonebs 3. Current no indication for bronch as CXR did improve 4. Per patient not trying to harm herself but suggest psych consult anyway once extubated to help with substance abuse. 5. Feed patient 6. Stopped fluids as she will be fed 7. Guarded prognosis CCt 31 minutes.
[2021-10-22] MEDS: fentaNYL 100 MCG/2 ML INJ IV PRN ×3 (11:35→17:26)
[2021-10-22] MEDS: methylPREDNISolone Sod Succinate 125 MG/2 ML INJ IV SCH ×2 (13:46→21:00)
--- NOTE | 2021-10-22 13:55 | XRay Report ---
LEFT ANKLE 2 VIEWS INDICATION / CLINICAL INFORMATION: Left ankle pain. COMPARISON: None available. FINDINGS: BONES / JOINT(S): An intramedullary surinder and screws transfix the visualized distal tibia. There are ol d healed fractures of the distal tibial and fibular shafts. I see no evidence of acute fracture, subl uxation or destructive lesion. There is no evidence of significant arthritis. SOFT TISSUES: No significant abnormality. ADDITIONAL FINDINGS: None. Signer Name: Srikanth Cochran MD Signed: 10/22/2021 1:50 PM Workstation Name: [id number]
--- NOTE | 2021-10-22 13:56 | XRay Report ---
LEFT FOOT 2 VIEWS INDICATION / CLINICAL INFORMATION: Left foot pain. COMPARISON: None available. FINDINGS: BONES / JOINT(S): There are minimal degenerative or postsurgical changes involving the first metatars al head medially. There is no evidence of acute fracture, subluxation or destructive lesion. SOFT TISSUES: No significant abnormality. ADDITIONAL FINDINGS: None. Signer Name: Srikanth Cochran MD Signed: 10/22/2021 1:52 PM Workstation Name: [id number]
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
--- NOTE | 2021-10-22 14:22 | Consultation ---
History of Present Illness - Reason for Consult Consult date: 10/22/21 Reason for consult: mental health evaluation - Chief Complaint Chief complaint: Altered mental status Drug overdose - History of Present Psychiatric Illness ED Note: The patient is a 41-year-old female who was brought to the hospital by emergency medical services who is currently receiving [id number] ventilation. History is entirely obtained from EMS. EMS reports that they were called to the scene of a 41-year-old female with a complaint of altered mental status as per family/bystanders. EMS reports that it is suspected that this patient may have recreationally overdose on GHB and/or other recreational drugs. EMS reports patient minimally responsive in the field, they attempted intubation, but were unsuccessful. EMS also reports normal blood pressure and heart rate, and normal Accu-Chek. EMS reports giving 4 mg of Narcan in the field with minimal improvement in symptoms. They did report that the patient slightly aroused after receiving Narcan, and moves 4 extremities. The patient was seen today. She is currently intubated, will evaluate when the patient is extubated. PAST PSYCHIATRIC HISTORY PAST MEDICAL HISTORY: None reported Family Psychiatric History: None reported or documented SOCIAL HISTORY REVIEW OF SYSTEMS MENTAL STATUS EXAMINATION Assessment: (1) Treatment Plan Continue home medications. Risks, benefits and alternatives of medications discussed with the patient, questions answered and consent obtained from patient. PSYCHOTHERAPY: Supportive psychotherapy provided MEDICAL: Per primary team DELIRIUM PRECAUTIONS: Please re-orient patient frequently, keep lights on during the day, and minimize benzodiazepines and opiates as these medications could worsen patient's confusion. SENIOR CYTOTECHNOLOGIST: per primary DISPOSITION: Will reevaluate when patient is extubated. Will follow. Thanks Thank you for the consult. Case discussed with Dr. Dunlap who agrees with current disposition Medications and Allergies Medications and Allergies Allergies Allergy/AdvReac Type Severity Reaction Status Date / Time No Known Allergies Allergy Unverified 10/22/21 05:16 Home Medications Medication Instructions Recorded Confirmed Last Taken Type No Known Home Medications [No 10/22/21 10/22/21 Unknown History Reported Home Medications] Active Meds: Active Medications Acetaminophen (Acetaminophen 325 Mg Tab) 650 mg PO Q4H PRN PRN Reason: Pain MILD(1-3)/Fever >100.5/BROOKS Albuterol (Albuterol 2.5 Mg/3 Ml Nebu) 2.5 mg IH Q3HRT PRN PRN Reason: Shortness Of Breath Albuterol/Ipratropium (Ipratropium/Albuterol Sulfate 3 Ml Ampul.Neb) 1 ampul IH Q6HRT [facility] Last Admin: 10/22/21 13:32 Dose: 1 ampul Budesonide (Budesonide 0.25 Mg/2 Ml Nebu) 0.25 mg IH Q12HRT [facility] Last Admin: 10/22/21 10:25 Dose: Not Given Famotidine (Famotidine 20 Mg/2 Ml Inj) 20 mg IV BID [facility] Last Admin: 10/22/21 10:03 Dose: 20 mg Fentanyl (Fentanyl 100 Mcg/2 Ml Inj) 50 mcg IV Q10MIN PRN PRN Reason: ANALGESIA Last Admin: 10/22/21 14:02 Dose: 50 mcg Heparin Sodium (Porcine) (Heparin 5,000 Unit/1 Ml Vial) 5,000 unit SUB-Q Q12HR [facility] Last Admin: 10/22/21 10:06 Dose: 5,000 unit Hydromorphone HCl (Hydromorphone 1 Mg/1 Ml Inj) 0.5 mg IV Q3H PRN PRN Reason: Pain , Severe (7-10) Hydrophilic Ointment (Lip Therapy Vaseline) 1 applic TP Q2HR PRN PRN Reason: Dry Lips Propofol (Diprivan 10 Mg/Ml) 1,000 mg in 100 mls @ 2.247 mls/hr IV TITR [facility]; Protocol Last Titration: 10/22/21 13:55 Dose: 40 mcg/kg/min, 17.976 mls/hr Fentanyl Citrate (Fentanyl Drip Premix) 2,000 mcg in 100 mls @ 3.745 mls/hr IV TITR [facility]; Protocol Last Titration: 10/22/21 10:00 Dose: 4 mcg/kg/hr, 14.98 mls/hr MIDAZOLAM/NS Drip 100mg/100ml (Midazolam/Ns Drip 100mg/100ml) 100 mg in 100 mls @ 1 mls/hr IV TITR [facility]; Protocol Levofloxacin/Dextrose (Levaquin 500mg/100ml) 500 mg in 100 mls @ 100 mls/hr IV Q24H [facility]; Protocol Stop: 10/26/21 11:59 Last Infusion: 10/22/21 12:35 Dose: Infused Lorazepam (Lorazepam 2 Mg/Ml Vial) 1 mg IV Q4H PRN PRN Reason: Agitation Methylprednisolone Sodium Succinate (Methylprednisolone Sod Succinate 125 Mg/2 Ml Inj) 60 mg IV Q8HR [facility] Last Admin: 10/22/21 13:46 Dose: 60 mg Morphine Sulfate (Morphine 2 Mg/1 Ml Inj) 2 mg IV Q4H PRN PRN Reason: Pain, Moderate (4-6) Multi-Ingred Cream/Lotion/Oil/Oint (Mineral Oil/Petrolatum, White Ophth Oint 3.5 Gm) 1 applic OU Q4HR PRN PRN Reason: Dry Eye(s) Ondansetron HCl (Ondansetron 4 Mg/2 Ml Inj) 4 mg IV Q8H PRN PRN Reason: Nausea And Vomiting Senna/Docusate Sodium (Sennosides/Docusate Sodium 8.6/50 Mg Tab) 1 tab FEEDTUBE BID [facility] Last Admin: 10/22/21 09:51 Dose: Not Given Sodium Chloride (Sodium Chloride 0.9% 10 Ml Flush Syringe) 10 ml IV BID [facility] Last Admin: 10/22/21 10:04 Dose: 10 ml Sodium Chloride (Sodium Chloride 0.9% 10 Ml Flush Syringe) 10 ml IV PRN PRN PRN Reason: LINE FLUSH Mental Status Exam - Vital signs Last Vital Signs Temp 98.9 F 10/22/21 12:04 Pulse 80 10/22/21 14:15 Resp 24 10/22/21 14:15 BP 99/46 10/22/21 14:15 Pulse Ox 91 10/22/21 14:15 Results Result Diagrams: 10/22/21 10:06 10/22/21 10:06 Abnormal lab results 10/21/21 10/21/21 10/21/21 Range/Units 00:45 23:51 23:51 WBC 19.8 H (4.5-11.0) K/mm3 RDW 16.9 H (13.2-15.2) % Monocytes % (Manual) 11.0 H (0.0-7.3) % Seg Neutrophils # Man 12.1 H (1.8-7.7) K/mm3 Monocytes # (Manual) 2.2 H (0.0-0.8) K/mm3 Basophils # (Manual) 0.2 H (0.0-0.1) K/mm3 ABG pH 7.218 L (7.350-7.450) pH Units POC ABG pCO2 (32.0-48.0) mmHg POC ABG pO2 (83-108) mmHg ABG pO2 (80.0-90.0) mm Hg ABG HCO3 32.6 H (20.0-26.0) mmol/L ABG Base Excess (-2.0-3.0) mmol/L ABG Oxyhemoglobin (94-98) ABG Carboxyhemoglobin 6.7 H (0.0-5.0) % Oxyhemoglobin 88.4 L (95.0-99.0) % Carboxyhemoglobin (0.5-1.5) Creatinine (0.6-1.2) mg/dL Glucose 132 H (65-100) mg/dL POC Glucose (70-105) mg/dL Salicylates (2.8-20.0) mg/dL Acetaminophen (10.0-30.0) ug/mL 10/21/21 10/21/21 10/22/21 Range/Units 23:51 23:51 04:25 WBC (4.5-11.0) K/mm3 RDW (13.2-15.2) % Monocytes % (Manual) (0.0-7.3) % Seg Neutrophils # Man (1.8-7.7) K/mm3 Monocytes # (Manual) (0.0-0.8) K/mm3 Basophils # (Manual) (0.0-0.1) K/mm3 ABG pH 7.310 L (7.350-7.450) pH Units POC ABG pCO2 64.5 H (32.0-48.0) mmHg POC ABG pO2 66.0 L (83-108) mmHg ABG pO2 (80.0-90.0) mm Hg ABG HCO3 (20.0-26.0) mmol/L ABG Base Excess (-2.0-3.0) mmol/L ABG Oxyhemoglobin 90.3 L (94-98) ABG Carboxyhemoglobin (0.0-5.0) % Oxyhemoglobin (95.0-99.0) % Carboxyhemoglobin 2.8 H (0.5-1.5) Creatinine (0.6-1.2) mg/dL Glucose (65-100) mg/dL POC Glucose (70-105) mg/dL Salicylates < 0.3 L (2.8-20.0) mg/dL Acetaminophen 5.0 L (10.0-30.0) ug/mL 10/22/21 10/22/21 10/22/21 Range/Units 08:20 10:06 10:06 WBC 22.4 H (4.5-11.0) K/mm3 RDW 16.4 H (13.2-15.2) % Monocytes % (Manual) (0.0-7.3) % Seg Neutrophils # Man (1.8-7.7) K/mm3 Monocytes # (Manual) (0.0-0.8) K/mm3 Basophils # (Manual) (0.0-0.1) K/mm3 ABG pH 7.338 L (7.350-7.450) pH Units POC ABG pCO2 (32.0-48.0) mmHg POC ABG pO2 (83-108) mmHg ABG pO2 167.4 H (80.0-90.0) mm Hg ABG HCO3 30.3 H (20.0-26.0) mmol/L ABG Base Excess 3.3 H (-2.0-3.0) mmol/L ABG Oxyhemoglobin (94-98) ABG Carboxyhemoglobin (0.0-5.0) % Oxyhemoglobin (95.0-99.0) % Carboxyhemoglobin (0.5-1.5) Creatinine 0.5 L (0.6-1.2) mg/dL Glucose (65-100) mg/dL POC Glucose (70-105) mg/dL Salicylates (2.8-20.0) mg/dL Acetaminophen (10.0-30.0) ug/mL 10/22/21 Range/Units 11:44 WBC (4.5-11.0) K/mm3 RDW (13.2-15.2) % Monocytes % (Manual) (0.0-7.3) % Seg Neutrophils # Man (1.8-7.7) K/mm3 Monocytes # (Manual) (0.0-0.8) K/mm3 Basophils # (Manual) (0.0-0.1) K/mm3 ABG pH (7.350-7.450) pH Units POC ABG pCO2 (32.0-48.0) mmHg POC ABG pO2 (83-108) mmHg ABG pO2 (80.0-90.0) mm Hg ABG HCO3 (20.0-26.0) mmol/L ABG Base Excess (-2.0-3.0) mmol/L ABG Oxyhemoglobin (94-98) ABG Carboxyhemoglobin (0.0-5.0) % Oxyhemoglobin (95.0-99.0) % Carboxyhemoglobin (0.5-1.5) Creatinine (0.6-1.2) mg/dL Glucose (65-100) mg/dL POC Glucose 116 H (70-105) mg/dL Salicylates (2.8-20.0) mg/dL Acetaminophen (10.0-30.0) ug/mL All other labs normal.
[2021-10-22] MEDS: ACETAMINOPHEN 325 MG TAB PO PRN ×2 (17:03→21:28)
[2021-10-22] MEDS ORDERED: VANCOMYCIN 1,250 MG in SODIUM CHLORIDE 0.9% 250ML 250 ML IV SCH (20:00)
--- NOTE | 2021-10-23 01:21 | XRay Report ---
CHEST 1 VIEW INDICATION / CLINICAL INFORMATION: follow up respiratory failure. COMPARISON: Chest x-ray 10/22/2021 FINDINGS: SUPPORT DEVICES: Stable, satisfactory device positioning. Left subclavian artery stent unchanged. HEART / MEDIASTINUM: No significant interval change. LUNGS / PLEURA: Interval partial clearing of the right middle lobe. Lungs otherwise grossly clear. No pneumothorax. ADDITIONAL FINDINGS: No significant additional findings. IMPRESSION: 1. Improving aeration of right middle lobe. Lungs otherwise clear. No active process otherwise demons trated. Signer Name: Homero Tim II, MD Signed: 10/23/2021 1:16 AM Workstation Name: [id number]
[2021-10-23] MEDS: fentaNYL DRIP Premix 2,000 MCG/100 ML BAG IV SCH (02:38)
[2021-10-23] MEDS: IPRATROPIUM/ALBUTEROL SULFATE 3 ML AMPUL.NEB IH SCH ×3 (04:15→14:25)
[2021-10-23 04:52] LABS: ABG Base Excess 4.3 mmol/L (-2.0-3.0); ABG HCO3 29.5 mmol/L (20.0-26.0); ABG Methemoglobin 0.4 % (0.0-1.5); ABG Oxygen Saturation 92.8 % (95.0-99.0); ABG PCO2 46.9 mm Hg; ABG PH 7.416 pH Units (7.350-7.450); ABG PO2 58.6 mm Hg (80.0-90.0)
[2021-10-23] MEDS: methylPREDNISolone Sod Succinate 125 MG/2 ML INJ IV SCH ×2 (05:57→15:52)
[2021-10-23 08:10] LABS: Hematocrit 34.1 % (30.3-42.9); Hemoglobin 11.3 gm/dl (10.1-14.3); Mean Corpuscular HGB Conc 33 % (30-34); Mean Corpuscular Volume 87 fl (79-97); Platelet Count 334 K/mm3 (140-440); Red Cell Distribution Width 16.9 % (13.2-15.2)
[2021-10-23 08:28] LABS: Blood Urea Nitrogen 12 mg/dL (7-17); Calcium 9.3 mg/dL (8.4-10.2); Hemolysis Index 3
[2021-10-23 08:29] LABS: BUN/Creatinine Ratio 24
[2021-10-23] MEDS: BUDESONIDE 0.25 MG/2 ML NEBU IH SCH (08:47)
--- NOTE | 2021-10-23 09:13 | Electrocardiograph Report ---
[facility] Test Date: 2021-10-21 Test Time: 23:57:40 Pat Name: JIMMY MARIE Department: Room: A258 1 Gender: F Property Developer: SALENA : 1980 Requested By: REBECCA SYKES Order Number: [id number] Reading MD: Abdon Ledesma Measurements Intervals [place] Rate: 97 P: 59 IN: 169 QRS: 87 QRSD: 100 T: 51 QT: 387 QTc: 493 Interpretive Statements Sinus rhythm nonspecific st-t No previous ECG available for comparison Electronically Signed On 10-23-2021 9:13:23 EST by Abdon Ledesma
[2021-10-23] MEDS ORDERED: FAMOTIDINE 20 MG TAB FEEDTUBE SCH (10:00)
[2021-10-23] MEDS ORDERED: FAMOTIDINE 20 MG TAB PO SCH (11:00)
--- NOTE | 2021-10-23 11:27 | Progress Note ---
Assessment and Plan 41 y/o female with acute respiratory failure secondary to drug abuse and possible COPD exacerbation. 10/23/21: Extubate. Bipap available PRN. Continue IV steroids for at least 24 more hours and then switch to Prednisone taper as follows: 60 daily for 3 days, 40 daily for 3 days, 20 daily for 3 days then stop. Psych can continue their eval. Bedside swallow. should be stable for transfer to floor. Will ask nursing if nicotine patch is felt to be needed. 1. Continue vent today, resume sedation, 2. Added solumedrol 60q6 and will add BID pulmicort. Already on scheduled duonebs 3. Current no indication for bronch as CXR did improve 4. Per patient not trying to harm herself but suggest psych consult anyway once extubated to help with substance abuse. 5. Feed patient 6. Stopped fluids as she will be fed 7. Guarded prognosis CCt 31 minutes. Subjective Date of service: 10/23/21 Interval history: Awake and alert. Tolerating PSV at 40%. Good sats. Objective Vital Signs - 12hr 10/22/21 10/22/21 10/23/21 23:30 23:45 00:00 Temperature 97.7 F Pulse Rate 68 57 L 59 L Pulse Rate [ Bilateral] Pulse Rate [ 59 L From Monitor] Respiratory 24 24 24 Rate Respiratory Rate [Bilateral ] Blood Pressure 92/47 85/40 O2 Sat by Pulse 88 89 91 Oximetry 10/23/21 10/23/21 10/23/21 00:01 00:15 00:31 Temperature Pulse Rate 60 58 L 78 Pulse Rate [ Bilateral] Pulse Rate [ From Monitor] Respiratory 23 24 18 Rate Respiratory Rate [Bilateral ] Blood Pressure 94/41 87/43 87/43 O2 Sat by Pulse 89 88 86 Oximetry 10/23/21 10/23/21 10/23/21 00:45 00:46 01:00 Temperature Pulse Rate 53 L 52 L 58 L Pulse Rate [ Bilateral] Pulse Rate [ From Monitor] Respiratory 24 24 Rate Respiratory Rate [Bilateral ] Blood Pressure 94/46 94/46 99/50 O2 Sat by Pulse 92 90 Oximetry 10/23/21 10/23/21 10/23/21 01:15 01:31 01:45 Temperature Pulse Rate 61 57 L 49 L Pulse Rate [ Bilateral] Pulse Rate [ From Monitor] Respiratory 24 24 24 Rate Respiratory Rate [Bilateral ] Blood Pressure 98/56 99/51 99/51 O2 Sat by Pulse 89 89 89 Oximetry 10/23/21 10/23/21 10/23/21 02:00 02:15 02:31 Temperature Pulse Rate 55 L 46 L 48 L Pulse Rate [ Bilateral] Pulse Rate [ From Monitor] Respiratory 21 24 24 Rate Respiratory Rate [Bilateral ] Blood Pressure 96/49 96/49 87/44 O2 Sat by Pulse 89 89 91 Oximetry 10/23/21 10/23/21 10/23/21 02:46 03:00 03:08 Temperature Pulse Rate 52 L 47 L 58 L Pulse Rate [ Bilateral] Pulse Rate [ From Monitor] Respiratory 24 24 Rate Respiratory Rate [Bilateral ] Blood Pressure 102/47 94/44 O2 Sat by Pulse 90 90 Oximetry 10/23/21 10/23/21 10/23/21 03:16 03:30 03:45 Temperature Pulse Rate 49 L 53 L 52 L Pulse Rate [ Bilateral] Pulse Rate [ From Monitor] Respiratory 24 24 24 Rate Respiratory Rate [Bilateral ] Blood Pressure 89/47 91/52 98/48 O2 Sat by Pulse 89 89 87 Oximetry 10/23/21 10/23/21 10/23/21 04:00 04:15 04:23 Temperature 98.6 F Pulse Rate 54 L 59 L 60 Pulse Rate [ Bilateral] Pulse Rate [ 68 From Monitor] Respiratory 24 24 Rate Respiratory Rate [Bilateral ] Blood Pressure 96/51 93/57 93/57 O2 Sat by Pulse 88 88 90 Oximetry 10/23/21 10/23/21 10/23/21 04:26 04:30 04:45 Temperature Pulse Rate 64 72 Pulse Rate [ 60 Bilateral] Pulse Rate [ From Monitor] Respiratory 24 24 Rate Respiratory 24 Rate [Bilateral ] Blood Pressure 102/48 101/50 O2 Sat by Pulse 88 87 Oximetry 10/23/21 10/23/21 10/23/21 05:00 05:15 05:30 Temperature Pulse Rate 75 73 71 Pulse Rate [ Bilateral] Pulse Rate [ From Monitor] Respiratory 24 24 17 Rate Respiratory Rate [Bilateral ] Blood Pressure 98/50 99/51 102/53 O2 Sat by Pulse 86 91 91 Oximetry 10/23/21 10/23/21 10/23/21 05:45 06:00 06:16 Temperature Pulse Rate 66 58 L 53 L Pulse Rate [ Bilateral] Pulse Rate [ From Monitor] Respiratory 17 13 24 Rate Respiratory Rate [Bilateral ] Blood Pressure 106/54 101/53 101/49 O2 Sat by Pulse 91 91 90 Oximetry 10/23/21 10/23/21 10/23/21 06:30 06:46 07:00 Temperature Pulse Rate 53 L 64 67 Pulse Rate [ Bilateral] Pulse Rate [ From Monitor] Respiratory 21 24 17 Rate Respiratory Rate [Bilateral ] Blood Pressure 101/54 99/63 99/63 O2 Sat by Pulse 90 92 91 Oximetry 10/23/21 10/23/21 10/23/21 07:16 07:30 07:45 Temperature Pulse Rate 60 51 L 55 L Pulse Rate [ Bilateral] Pulse Rate [ From Monitor] Respiratory 14 24 24 Rate Respiratory Rate [Bilateral ] Blood Pressure 104/57 102/54 111/56 O2 Sat by Pulse 88 90 89 Oximetry 10/23/21 10/23/21 10/23/21 08:00 08:16 08:23 Temperature 98.2 F Pulse Rate 51 L 61 Pulse Rate [ Bilateral] Pulse Rate [ 51 L From Monitor] Respiratory 24 19 Rate Respiratory Rate [Bilateral ] Blood Pressure 105/53 109/56 O2 Sat by Pulse 89 90 Oximetry 10/23/21 10/23/21 10/23/21 08:30 08:45 08:46 Temperature Pulse Rate 55 L 52 L 65 Pulse Rate [ Bilateral] Pulse Rate [ From Monitor] Respiratory 24 12 18 Rate Respiratory Rate [Bilateral ] Blood Pressure 108/55 108/55 O2 Sat by Pulse 90 97 97 Oximetry 10/23/21 10/23/21 10/23/21 08:47 09:00 09:15 Temperature Pulse Rate 68 68 Pulse Rate [ 60 Bilateral] Pulse Rate [ From Monitor] Respiratory 14 11 L Rate Respiratory 14 Rate [Bilateral ] Blood Pressure 114/58 109/54 O2 Sat by Pulse 89 90 Oximetry 10/23/21 10/23/21 10/23/21 09:30 09:45 10:00 Temperature Pulse Rate 77 76 62 Pulse Rate [ Bilateral] Pulse Rate [ From Monitor] Respiratory 13 19 13 Rate Respiratory Rate [Bilateral ] Blood Pressure 109/54 111/56 109/55 O2 Sat by Pulse 87 87 90 Oximetry 10/23/21 10/23/21 10/23/21 10:16 10:30 10:46 Temperature Pulse Rate 64 73 63 Pulse Rate [ Bilateral] Pulse Rate [ From Monitor] Respiratory 19 17 18 Rate Respiratory Rate [Bilateral ] Blood Pressure 119/63 117/65 121/54 O2 Sat by Pulse 94 91 90 Oximetry 10/23/21 11:00 Temperature Pulse Rate 68 Pulse Rate [ Bilateral] Pulse Rate [ From Monitor] Respiratory 15 Rate Respiratory Rate [Bilateral ] Blood Pressure 122/64 O2 Sat by Pulse 90 Oximetry Constitutional: no acute distress, alert, other (appears older than stated age) Eyes: non-icteric ENT: other (orally intubated and sedated) Neck: supple Effort: normal Ascultation: Bilateral: wheezes Percussion: Bilateral: not dull Cardiovascular: regular rate and rhythm Gastrointestinal: normoactive bowel sounds, soft, non-tender Extremities: no cyanosis, no edema, pink and warm, pulses normal CBC and BMP: 10/23/21 07:43 10/23/21 07:43 ABG, PT/INR, D-dimer: ABG ABG pH 7.416 pH Units (7.350-7.450) 10/23/21 04:43 POC ABG pCO2 64.5 mmHg (32.0-48.0) H 10/22/21 04:25 ABG pCO2 46.9 mm Hg 10/23/21 04:43 POC ABG pO2 66.0 mmHg (83-108) L 10/22/21 04:25 ABG pO2 58.6 mm Hg (80.0-90.0) L 10/23/21 04:43 POC ABG HCO3 31.7 10/22/21 04:25 ABG O2 Saturation 92.8 % (95.0-99.0) L 10/23/21 04:43 PT/INR, D-dimer PT 12.7 Sec. (12.2-14.9) 10/21/21 23:51 INR 0.87 (0.87-1.13) 10/21/21 23:51 Abnormal lab findings: Abnormal Labs 10/21/21 10/21/21 10/21/21 00:45 23:51 23:51 WBC 19.8 H RDW 16.9 H Monocytes % (Manual) 11.0 H Seg Neutrophils # Man 12.1 H Monocytes # (Manual) 2.2 H Basophils # (Manual) 0.2 H ABG pH 7.218 L POC ABG pCO2 POC ABG pO2 ABG pO2 ABG HCO3 32.6 H ABG O2 Saturation ABG Base Excess ABG Hemoglobin ABG Oxyhemoglobin ABG Carboxyhemoglobin 6.7 H Oxyhemoglobin 88.4 L Carboxyhemoglobin Chloride Creatinine Glucose 132 H POC Glucose Salicylates Acetaminophen 10/21/21 10/21/21 10/22/21 23:51 23:51 04:25 WBC RDW Monocytes % (Manual) Seg Neutrophils # Man Monocytes # (Manual) Basophils # (Manual) ABG pH 7.310 L POC ABG pCO2 64.5 H POC ABG pO2 66.0 L ABG pO2 ABG HCO3 ABG O2 Saturation ABG Base Excess ABG Hemoglobin ABG Oxyhemoglobin 90.3 L ABG Carboxyhemoglobin Oxyhemoglobin Carboxyhemoglobin 2.8 H Chloride Creatinine Glucose POC Glucose Salicylates < 0.3 L Acetaminophen 5.0 L 10/22/21 10/22/21 10/22/21 08:20 10:06 10:06 WBC 22.4 H RDW 16.4 H Monocytes % (Manual) Seg Neutrophils # Man Monocytes # (Manual) Basophils # (Manual) ABG pH 7.338 L POC ABG pCO2 POC ABG pO2 ABG pO2 167.4 H ABG HCO3 30.3 H ABG O2 Saturation ABG Base Excess 3.3 H ABG Hemoglobin ABG Oxyhemoglobin ABG Carboxyhemoglobin Oxyhemoglobin Carboxyhemoglobin Chloride Creatinine 0.5 L Glucose POC Glucose Salicylates Acetaminophen 10/22/21 10/23/21 10/23/21 11:44 04:43 07:43 WBC 21.2 H RDW 16.9 H Monocytes % (Manual) Seg Neutrophils # Man Monocytes # (Manual) Basophils # (Manual) ABG pH POC ABG pCO2 POC ABG pO2 ABG pO2 58.6 L ABG HCO3 29.5 H ABG O2 Saturation 92.8 L ABG Base Excess 4.3 H ABG Hemoglobin 11.6 L ABG Oxyhemoglobin ABG Carboxyhemoglobin Oxyhemoglobin 91.3 L Carboxyhemoglobin Chloride Creatinine Glucose POC Glucose 116 H Salicylates Acetaminophen 10/23/21 07:43 WBC RDW Monocytes % (Manual) Seg Neutrophils # Man Monocytes # (Manual) Basophils # (Manual) ABG pH POC ABG pCO2 POC ABG pO2 ABG pO2 ABG HCO3 ABG O2 Saturation ABG Base Excess ABG Hemoglobin ABG Oxyhemoglobin ABG Carboxyhemoglobin Oxyhemoglobin Carboxyhemoglobin Chloride 97.7 L Creatinine 0.5 L Glucose 165 H POC Glucose Salicylates Acetaminophen
--- NOTE | 2021-10-23 11:31 | Progress Note ---
Subjective - Reason for Consult Consult date: 10/23/21 Reason for consult: OD - Chief Complaint Chief complaint: The patient was seen today. She is calm and cooperative. She is a/o x 3. A nurse is at bedside. She is slightly irritable. When I introduce myself, she says "you are wasting your time." The patient denies trying to harm herself, but states she was simply getting high. She says she took some "GHB for the first time in years." When asked about any other illicit drug use, she replies "not enough to talk about." She is positive for amphetamines. The patient says she has a history of Bipolar disorder. She says she takes lamictal, trazodone, zoloft. She also say she takes suboxone. She says she is compliant with her medications and sees a psychiatris on outpatient basis. The patient says she lives with her boyfriend REVIEW OF SYSTEMS Constitutional: Negative for weight loss ENT: Negative for stridor Respiratory: Negative for cough or hemoptysis All other systems reviewed and are negative MENTAL STATUS EXAMINATION General Appearance and Behavior: Age appropriate, good hygiene, wearing appropriate clothes, good eye contact, calm, cooperative Cooperation: Participating/engaged Psychomotor Behavior: Psychomotor normal Mood: better Affect and affective range: congruent with stated mood Thought Process: goal directed Thought Content: None Speech: normal tone and pace Suicidal Ideation: Denies Homicidal Ideation: Denies Hallucinations: Denies Delusions: None elicited Impulse Control: Limited Insight and Judgment: Limited insight and judgment Memory: Limited Attention: Divided Orientation: Alert, oriented Assessment and Plan Unintentional Overdose Treatment Plan d/c 1013 Continue home meds Decrease Klonopin 0.5mg po TID The patients disorientation is likely due to elevated blood glucose Medical: per primary Sitter: per primary Disposition: Do not recommend acute psychiatric inpatient treatment. She understands that if SI/HI arise she is to seek immediate assistance. The patient to abstain from all illicit drug use [employer] to give all necessary resources including drug rehab [employer] to further discuss safety plan Will sign off. Thanks Case staffed with Dr. Dunlap Mental Status Exam - Vital signs Last Vital Signs Temp 98.2 F 10/23/21 08:23 Pulse 68 10/23/21 11:00 Resp 15 10/23/21 11:00 BP 122/64 10/23/21 11:00 Pulse Ox 90 10/23/21 11:00
[2021-10-23] MEDS ORDERED: clonazePAM 0.5 MG TAB PO PRN (11:37)
[2021-10-23] MEDS: SENNOSIDES/DOCUSATE SODIUM 8.6/50 MG TAB FEEDTUBE SCH (11:39)
[2021-10-23] MEDS ORDERED: SERTRALINE 100 MG TAB PO SCH ×2 (12:00→22:00)
[2021-10-23] MEDS ORDERED: BUPRENORPHINE 2 MG/NALOXONE 0.5 MG FILM SL SCH ×2 (12:00)
[2021-10-23] MEDS ORDERED: NICOTINE 21 MG/24 HR PATCH TD SCH (12:00)
[2021-10-23] MEDS ORDERED: lamoTRIgine 100 MG TAB PO SCH (12:00)
[2021-10-23] MEDS: HEPARIN 5,000 UNIT/1 ML VIAL SUB-Q SCH (14:00)
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
[2021-10-23 15:41] LABS: Band Neutrophils # (Manual) 1.3 K/mm3; Basophils % (Manual) 0 % (0.0-1.8); Eosinophils % (Manual) 0 % (0.0-4.3); Total Cells Counted 100
[2021-10-23 15:44] LABS: Platelet Estimate Consistent w Auto
[2021-10-23 15:51] VITALS: BP 132/67
[2021-10-23] MEDS ORDERED: traZODone 100 MG TAB PO SCH (22:00)
[2021-10-24] MEDS ORDERED: lamoTRIgine 100 MG TAB PO SCH (12:00)
[2021-10-24] MEDS ORDERED: ZIPRASIDONE 40 MG CAP PO SCH (22:00)
== END 2021-10-23 16:54 | disposition left against medical advice (07) | DRG 917 ==
LOC: ED 23:03 → CC1 10-22 02:33
PROVIDERS: ADMIT Hospitalist; ATTEND Internal Medicine
PROC: 0BH17EZ Insertion of Endotracheal Airway into Trachea, Via Natural or Artificial Opening (ICD-10-PCS; principal; 2021-10-21)
PROC: 5A1945Z Respiratory Ventilation, 24-96 Consecutive Hours (ICD-10-PCS; 2021-10-21)
PROC: 4A033R1 Measurement of Arterial Saturation, Peripheral, Percutaneous Approach (ICD-10-PCS; 2021-10-22)
DX: T50.901A Poisoning by unspecified drugs, medicaments and biological substances, accidental (unintentional), initial encounter (principal); J96.21 Acute and chronic respiratory failure with hypoxia; J69.0 Pneumonitis due to inhalation of food and vomit; G92.8 Other toxic encephalopathy; J44.1 Chronic obstructive pulmonary disease with (acute) exacerbation; Y92.89 Other specified places as the place of occurrence of the external cause; J44.9 Chronic obstructive pulmonary disease, unspecified; F17.200 Nicotine dependence, unspecified, uncomplicated; K59.00 Constipation, unspecified; Z53.29 Procedure and treatment not carried out because of patient's decision for other reasons
CPT/HCPCS: 31500; 36415; 36600; 70450; 71045; 72125; 80048; 80053; 80307; 80320; 81001; 82140; 82803; 82805; 82962; 84443; 84484; 84702; 85007; 85025; 85027; 85610; 85730; 86850; 86900; 86901; 87086; 93005; 94002; 94640; 94644; G0378; J3490; J7070; Q0162; G0480; J1644; J1956; J2250; J2543; J2704; J2930; J3010; J3370; J7030; J7040